=== PATIENT | male | born 1950 | race Caucasian/White ===

== ENCOUNTER 2021-10-17 03:30 | Emergency (ER) | payer MEDICARE, MEDICAID ==
[~2021-10-17] VITALS: Ht 175.3 cm; Wt 100.0 kg
[2021-10-17 04:52] LABS: BASOPHILS % 0.5 % (0.0-2.0); EOSINOPHILS % 1.9 % (0.0-5.0); HEMATOCRIT. 34.4 % (42.0-52.0); HEMOGLOBIN. 11.5 g/dL (14.0-18.0); LYMPHOCYTES % 8.2 % (20.0-50.0); MEAN CORPUSCULAR HEMOGLOBIN 31.8 pg (28.0-32.0); MEAN PLATELET VOLUME 8.5 fl (7.4-10.4); MONOCYTES % 7.5 % (2.0-8.0); NEUTROPHILS % 81.9 % (40.0-76.0); PLATELET 206 x1000/uL (130-400); RED BLOOD CELL COUNT 3.62 mill/uL (4.7-6.1); RED CELL DISTRIBUTION WIDTH 13.6 % (11.6-14.6)
[2021-10-17 04:53] LABS: CHLORIDE 97 mEq/L (98-107)
[2021-10-17 09:52] VITALS: BP 154/51
== END 2021-10-17 10:35 | disposition home or self-care (01) ==
LOC: ER 03:30
DX: R41.82 Altered mental status, unspecified (principal); E11.65 Type 2 diabetes mellitus with hyperglycemia; N19 Unspecified kidney failure; I49.9 Cardiac arrhythmia, unspecified; Z98.890 Other specified postprocedural states
CPT/HCPCS: 36415; 71045; 80053; 82962; 83880; 84484; 85025; 93005; 99285

== ENCOUNTER 2024-06-30 21:25 | Emergency (ER) | payer MEDICARE, MEDICAID ==
[~2024-06-30] VITALS: Ht 167.6 cm; Wt 86.0 kg
[2024-06-30 21:36] VITALS: O2SAT 97
[2024-06-30] MEDS: TETRACAINE 0.5% OPHTH DROPS 4ML BOTHEYE ONE (22:30)
[2024-07-01] VITALS: BP 132/65; PULSE 70; RESP 16; TEMP 36.61404; O2SAT 99
[2024-07-01] MEDS: TETRACAINE 0.5% OPHTH DROPS 4ML BOTHEYE ONE
[2024-07-01] MEDS: FLUORESCEIN SODIUM 1MG/STRIP BOTHEYE ONE
[2024-07-01] MEDS: ACETAMINOPHEN 500MG TABLET PO ONE
== END 2024-07-01 00:34 | disposition home or self-care (01) ==
LOC: ER 21:25
DX: H57.11 Ocular pain, right eye (principal); E11.9 Type 2 diabetes mellitus without complications; H54.61 Unqualified visual loss, right eye, normal vision left eye; Z99.2 Dependence on renal dialysis
CPT/HCPCS: 99283